=== PATIENT | male | born 1985 | race Caucasian/White ===

== ENCOUNTER 2018-11-01 18:11 | Emergency (ER) | payer OTHER ==
[~2018-11-01] VITALS: Ht 175.2 cm; Wt 90.7 kg
[~2018-11-01 18:11] MED LIST: ANAPROX DS550 MG PO; AUGMENTIN 875 M1 TAB PO; CIPRODEX 0.3%-7.5 ML OT; NO DAILY MEDS
[2018-11-01] MEDS ORDERED: VIBRAMYCIN100 MG PO (18:42)
== END 2018-11-01 18:58 | disposition home or self-care (01) ==
LOC: ED 18:11
DX: R21 Rash and other nonspecific skin eruption (principal); R60.0 Localized edema; Z88.6 Allergy status to analgesic agent